=== PATIENT | male | born 1980 | race African-American/Black ===

== ENCOUNTER 2023-07-06 02:35 | Emergency (ER) | payer OTHER ==
[~2023-07-06] VITALS: Ht 170.2 cm; Wt 70.8 kg
[~2023-07-06 02:35] MED LIST: NALO4SPR BNOSTRILS
[2023-07-06 02:40] VITALS: TEMP 98.1
[2023-07-06 06:41] VITALS: BP 105/63; O2SAT 97
== END 2023-07-06 06:56 | disposition home or self-care (01) ==
LOC: ER 02:37
DX: T40.411A Poisoning by fentanyl or fentanyl analogs, accidental (unintentional), initial encounter (principal); F17.200 Nicotine dependence, unspecified, uncomplicated; Z79.899 Other long term (current) drug therapy; Y92.89 Other specified places as the place of occurrence of the external cause
CPT/HCPCS: 82962-TC